=== PATIENT | male | born 1965 | race Caucasian/White ===

== ENCOUNTER 2016-09-11 21:05 | Emergency (ER) | payer BC, OTHER ==
[~2016-09-11] VITALS: Ht 165.1 cm; Wt 70.0 kg
[~2016-09-11 21:05] MED LIST: CIPR250T2 PO; PERC10TA27 PO; PYRI1TAB5 PO; PYRI200T4 PO; TAMS0.4C67 PO; UROCTAB3 PO
[2016-09-11 21:06] VITALS: BP 171/87; PULSE 98; RESP 20; TEMP 98.4; O2SAT 96
[2016-09-11] MEDS ORDERED: ONDANSETRON HCL 4 MG/2 ML VIAL IVP ONE (21:45)
[2016-09-11] MEDS ORDERED: SODIUM CHLORIDE 0.9% FLUSH 10 ML FLUSH IV FLUSH PRN (21:45)
[2016-09-11] MEDS ORDERED: KETOROLAC TROMETHAMINE 30 MG/ML (IVP) VIAL IVP ONE (21:45)
[2016-09-11] MEDS ORDERED: PERC10TA27 PO ×2 (21:45→23:50)
[2016-09-11] MEDS ORDERED: TAMS5CAP PO (21:48)
[2016-09-11] MEDS ORDERED: ALLO100T PO (21:48)
[2016-09-11] MEDS ORDERED: PYRI1TAB5 (21:48)
[2016-09-11] MEDS ORDERED: UROCTAB2 PO (21:48)
--- NOTE | 2016-09-11 21:52 | PD ---
HPI Chief Complaint: Flank/Kidney Pain Time Seen by Provider: 21:48 Travel History International Travel<30 days: No Contact w/Intl Traveler<30days: No Traveled to known affect area: No History of Present Illness HPI Patient comes in complaining of left flank pain that began shortly prior to arrival. Patient states this feels similar to his previous kidney stone pain. Pain goes from her left flank radiating into his left lower quadrant. Patient denies any change in color of urine. Patient states he takes allopurinol and Flomax to help prevent his kidney stones. Patient took a Percocet prior to coming to the emergency department with minimal relief of symptoms. Patient reports he did vomit once secondary to the pain. Denies any fevers, chest pain , shortness of breath, numbness or tingling anywhere, or headaches. Patient reports he just recently moved to [place] from [place] in July. Denies anything making the pain worse. PFSH Past Medical History Cardiovascular Problems: No Diminished Hearing: No Genitourinary: Yes Kidney Stones: Yes Musculoskeletal: No Neurologic: No Psychiatric: No Reproductive: No Respiratory: No Tetanus Vaccination: Unknown Influenza Vaccination: No Past Surgical History Genitourinary Surgery: Yes (Lithrotripsy x2) Other Surgery: Yes (LITHOTRIPSY X 2) Social History Alcohol Use: No Tobacco Use: No Substance Use: No Allergies-Medications (Allergen,Severity, Reaction): Coded Allergies: Penicillin (Verified Allergy, Severe, anaphylaxis, 09/11/16) Reported Meds & Prescriptions Reported Meds & Active Scripts Active Zofran Odt (Ondansetron Odt) 4 Mg Tab 4 Mg SL Q6HR PRN Ibuprofen 800 Mg Tab 800 Mg PO Q8H PRN Percocet (Oxycodone-Acetaminophen) 10-325 mg Tab 1 Tab PO Q6H PRN Reported B6 Natural (Pyridoxine HCl) 100 Mg Tab Urocit-K 10 (Potassium Citrate (Alkalinizer)) 1,080 Mg Tab 10 Meq PO TID Flomax (Tamsulosin HCl) 0.4 Mg Cap 0.4 Mg PO HS Allopurinol 100 Mg Tab 100 Mg PO DAILY Percocet (Oxycodone-Acetaminophen) 10-325 mg Tab 1 Tab PO Q4H PRN Review of Systems Except as stated in HPI: all other systems reviewed are Neg Physical Exam Narrative GENERAL: Well-developed, well nourished, uncomfortable, and non-ill appearing. SKIN: Focused skin assessment warm and dry. HEAD: Atraumatic. Normocephalic. EYES: Pupils equal and round. EOMI. No scleral icterus. No injection or drainage. ENT: No nasal bleeding or discharge. Mucous membranes pink and moist. NECK: Trachea midline. Supple. No nuclear rigidity. CARDIOVASCULAR: Regular rate and rhythm. No murmur appreciated. RESPIRATORY: No accessory muscle use. No respiratory distress. Clear to auscultation. Breath sounds equal bilaterally. GASTROINTESTINAL: Abdomen soft, nondistended. Hepatic and splenic margins not palpable. Normal bowel sounds 4. No pulsatile mass. Left lower quadrant and left flank tenderness. MUSCULOSKELETAL: No obvious deformities. No clubbing. No cyanosis. No edema. Full range of motion. NEUROLOGICAL: Awake and alert. No obvious cranial nerve deficits. Motor grossly within normal limits. Normal speech. PSYCHIATRIC: Appropriate mood and affect; insight and judgment normal. Data Data Last Documented VS Vital Signs Date Time Temp Pulse Resp B/P Pulse Ox O2 Delivery O2 Flow Rate FiO2 09/12/16 00:08 52 20 142/69 98 09/11/16 21:06 98.4 Room Air Orders Urinalysis - C+S If Indicated (09/11/16 21:45) Ct Abd/Pel W/O Iv Contrast (09/11/16 21:45) Iv Access Insert/Monitor (09/11/16 21:45) Ecg Monitoring (09/11/16 21:45) Oximetry (09/11/16 21:45) Ondansetron Inj (Zofran Inj) (09/11/16 21:45) Sodium Chloride 0.9% Flush (Ns Flush) (09/11/16 21:45) Ketorolac Inj (Toradol Inj) (09/11/16 21:45) Morphine Inj (Morphine Inj) (09/11/16 22:00) Morphine Inj (Morphine Inj) (09/11/16 22:00) Morphine Inj (Morphine Inj) (09/11/16 23:45) Labs Laboratory Tests Test 09/11/16 22:50 Urine Color YELLOW Urine Turbidity HAZY Urine pH 5.5 Urine Specific [place] 1.030 Urine Protein 30 mg/dL Urine Glucose (UA) NEG mg/dL Urine Ketones NEG mg/dL Urine Occult Blood LARGE Urine Nitrite NEG Urine Bilirubin NEG Urine Urobilinogen LESS THAN 2.0 MG/DL Urine Leukocyte Esterase NEG Urine RBC /hpf Urine WBC 6 /hpf Urine Squamous Epithelial <1 /hpf Cells Urine Calcium Oxalate Crystals RARE /hpf Urine Mucus FEW /lpf Urine Yeast (Budding) RARE Microscopic Urinalysis Comment CULT NOT INDICATED MDM Medical Decision Making Medical Screen Exam Complete: Yes Emergency Medical Condition: Yes Interpretation(s) CT scan of abdomen/pelvis read by the radiologist shows: 1. 4 mm stone in the distal left ureter causing moderate hydronephrosis the left kidney. 2. Otherwise, no other new or significant changes compared to the prior study. Differential Diagnosis Renal calculi, infected renal calculi, diverticulitis, other Narrative Course The patient presented with history, exam and evaluation consistent with kidney stone. CT scan showed evidence of stone with obstruction and hydronephrosis or hydroureter. Lab evaluation revealed no evidence to suggest obstructive infection. The patients pain was well controlled and the patient is tolerating fluids. There was no clinical evidence to support appendicitis, bowel obstruction, cholecystitis/cholelithiasis, pancreatitis, perforation of gastric ulcer, colitis, diverticulitis, bacterial peritonitis, obstruction, volvulus, hernial incarceration or strangulation at this time. There was no evidence to support vascular pathology such as AAA, mesenteric ischemia. There was also no clinical evidence by history, exam or risk factors to suggest atypical presentation of cardiac disease such as ACS, AMI or atypical angina. Diagnosis, plan of care, management and acute outpatient follow up with Urology was discussed with the patient. Warnings to return immediately, such as worsening pain not controlled by pain medications, vomiting, fever or chills or worsening of condition were discussed. The patient agreed with plan. Patient in no obvious distress upon re-evaluation. All pertinent laboratory/ Radiology result(s) discussed with patient. Patient was asked if they wanted to speak to my attending, which the patient did not wish to do at this time. Any questions/concerns in reference to patient diagnosis/condition discussed and clarified prior to patient's discharge. Reinforced sheer importance of close follow up with patient's primary physician or primary care clinic and urologist. Instructed patient to return to ED immediately, if symptoms return/ worsen. Pt showed understanding of above instructions. Further instructions and recommendations were detailed in discharge paperwork. Pt ambulated without difficulty out of ED at discharge. Diagnosis Primary Impression: Ureterolithiasis Referrals: Gary Gutiérrez MD Patient Instructions: General Instructions, Kidney Stones (ED) Additional Instructions: Follow-up with your primary care physician and urologist in 2-3 days for reevaluation. Take all medication as prescribed. Take your Flomax as prescribed. Use [id number] stool softener to help prevent constipation. Follow instructions on the packaging. Drink plenty of non-caffeinated and nonalcoholic fluids. Return to the emergency department if symptoms get worse. Med/Other Pt SpecificInfo: Prescription(s) given Scripts Ondansetron Odt (Zofran Odt)4 Mg Tab4 Mg SL Q6HR PRN (Nausea/Vomiting) #12 TAB Ref 0 Prov:Pao Malagon MD 09/11/16 Ibuprofen 800 Mg [id number] Mg PO Q8H PRN (PAIN SCALE 1 TO 10) #21 TAB Ref 0 Prov:Pao Malagon MD 09/11/16 Oxycodone-Acetaminophen (Percocet)10-325 mg Tab1 Tab PO Q6H PRN (PAIN GREATER THAN 7) #12 TAB Ref 0 Prov:Pao Malagon MD 09/11/16 Disposition: 01 DISCHARGE HOME Condition: Stable [facility] Sep 11, 2016 21:52
[2016-09-11] MEDS ORDERED: MORPHINE SULFATE 8 MG/ML INJ IV PUSH ONE ×2 (22:00→23:45)
[2016-09-11] MEDS ORDERED: MORPHINE SULFATE 4 MG/ML INJ IV PUSH ONE (22:00)
[2016-09-11 22:32] VITALS: RESP 20
[2016-09-11 23:25] LABS: BLOOD, URINE LARGE (NEG); CALCIUM OXALATE CRYSTALS,URINE RARE /hpf; COMMENT (UR) CULT NOT INDICATED; CULTURE IF INDICATED CULT NOT INDICATED; GLUCOSE,URINE NEG (NEG); KETONE, URINE NEG (NEG); MUCUS URINE FEW /lpf (OCC); NITRITE,URINE NEG (NEG); PH, URINE 5.5 (5.0-8.5); SQUAMOUS EPITHELIAL CELL URINE <1 /hpf (0-5); URINE COLOR YELLOW (YELLW/STRAW)
--- NOTE | 2016-09-11 23:34 | RADRPT ---
EXAM DATE/TIME: 09/11/2016 23:14 [facility] COMPARISON: CT ABDOMEN & PELVIS W/O CONTRAST, August 23, 2013, 23:30. INDICATIONS : Left flank pain. ORAL CONTRAST: No oral contrast ingested. RADIATION DOSE: 6.78 CTDIvol (mGy) MEDICAL HISTORY : Renal calculi. SURGICAL HISTORY : None. ENCOUNTER: Initial ACUITY: 1 day PAIN SCALE: 6/10 LOCATION: Left flank TECHNIQUE: Volumetric scanning of the abdomen and pelvis was performed. Using automated exposure control and ad justment of the mA and/or kV according to patient size, radiation dose was kept as low as reasonably achievable to obtain optimal diagnostic quality images. DICOM format image data is available electro nically for review and comparison. The lack of IV contrast limits the diagnosis for certain organ pa thology. FINDINGS: LOWER LUNGS: The visualized lower lungs are clear. LIVER: Homogeneous density without lesion. There is no dilation of the biliary tree. No calcified gallston es. SPLEEN: Normal size without lesion. PANCREAS: Within normal limits. KIDNEYS: Normal in size and shape. There is a right-sided extrarenal pelvis. No definite right-sided hydroneph rosis. The right ureter is normal in size. There is moderate hydronephrosis of the left kidney. There is perinephric edema. The left ureter is dilated. There is a 4 mm stone in the distal left ureter ap proximately 4 cm above the left UVJ. ADRENAL GLANDS: Within normal limits. VASCULAR: There is no aortic aneurysm. BOWEL/MESENTERY: The stomach, small bowel, and colon demonstrate no acute abnormality. There is no free intraperitone al air or fluid. The appendix is unremarkable. No inflammatory changes. A few scattered diverticula s een in the colon. ABDOMINAL WALL: Within normal limits. RETROPERITONEUM: There is no lymphadenopathy. BLADDER: No wall thickening or mass. REPRODUCTIVE: Within normal limits. INGUINAL: There is no lymphadenopathy or hernia. MUSCULOSKELETAL: Within normal limits for patient age. CONCLUSION: 1. 4 mm stone in the distal left ureter causing moderate hydronephrosis the left kidney. 2. Otherwise, no other new or significant changes compared to the prior study. Esau Gutierrez MD on September 11, 2016 at 23:29 Board Certified Radiologist. This report was verified electronically.
[2016-09-11] MEDS ORDERED: ZOFR4TAB3 SL (23:50)
[2016-09-11] MEDS ORDERED: IBUP800T23 PO (23:50)
[2016-09-12 00:08] VITALS: BP 142/69
== END 2016-09-12 00:58 | disposition home or self-care (01) ==
LOC: NEPD 21:05
DX: N20.1 Calculus of ureter (principal); N13.30 Unspecified hydronephrosis; Z79.1 Long term (current) use of non-steroidal anti-inflammatories (NSAID); Z79.899 Other long term (current) drug therapy; Z88.0 Allergy status to penicillin
CPT/HCPCS: 74176; 81001; 96374; 96375; 96376; 99285; J1885; J2270; J2405